=== PATIENT | female | born 1945 | race Caucasian/White ===

== ENCOUNTER 2021-01-22 15:06 | Inpatient (IN) | payer MEDICARE ==
[~2021-01-22] VITALS: Ht 170.2 cm; Wt 101.2 kg
[~2021-01-22 15:06] MED LIST: CA C1TAB92 PO; CARB1DRO7 OP; CHOL200026 PO; MAGN400T30 PO; MULT-1185 PO; OMEG1CAP18 PO; VALS160T2
[2021-01-22] MEDS ORDERED: ACET-2154 PO (16:04)
[2021-01-22] MEDS ORDERED: ASPI81TA31 PO (16:04)
[2021-01-22] MEDS ORDERED: RISP1TAB7 PO (16:04)
[2021-01-22] MEDS ORDERED: LISI40TA13 PO (16:04)
[2021-01-22] MEDS ORDERED: ATOR40TA PO (16:04)
[2021-01-22] MEDS ORDERED: DOCU-141 PO (16:04)
[2021-01-22] MEDS ORDERED: CLOP75TA15 PO (16:04)
[2021-01-22] MEDS ORDERED: MAGN400O6 PO (16:04)
[2021-01-22] MEDS ORDERED: DEXT15DR6 EACHEYE (16:04)
[2021-01-22] MEDS ORDERED: BISA10SU61 RC (16:04)
[2021-01-22] MEDS ORDERED: HYDR-3972 PO (16:04)
[2021-01-22] MEDS ORDERED: NA P133E RC (16:04)
[2021-01-22 17:12] LABS: HEMATOCRIT 35.4 % (31.2-41.9); MEAN CORPUSCULAR VOLUME 92.5 fL (75.5-95.3); PLATELET COUNT (AUTO) 203 K/uL (179-408)
[2021-01-22 17:17] LABS: CARBON DIOXIDE 24 mmol/L (21-32); CHLORIDE 107 mmol/L (98-107); CREATININE 0.8 mg/dL (0.6-1.3); GLUCOSE 94 mg/dL (74-106); POTASSIUM 4.3 mmol/L (3.5-5.1); UREA NITROGEN, BLOOD 25 mg/dL (7-18)
[2021-01-22 17:18] LABS: ETHANOL < 3 MG/DL (0-0)
[2021-01-22 17:23] LABS: ACETAMINOPHEN < 2.0 ug/mL (10-30); ALANINE AMINOTRANSFERASE 31 U/L (14-59); ALKALINE PHOSPHATASE 77 U/L (50-136); ASPARTATE AMINOTRANSFERASE 18 U/L (15-37); BILIRUBIN,DIRECT 0.1 mg/dL (0.0-0.2); BILIRUBIN,TOTAL 0.4 mg/dL (0.2-1.0)
[2021-01-22 17:30] LABS: THYROID STIMULATING HORMONE 1.373 mIU/mL (0.358-3.740)
--- NOTE | 2021-01-22 18:46 | NUR ---
Gave pt d/c instructions, pt verbalized understanding.
--- NOTE | 2021-01-22 19:55 | NUR ---
Called crisis team, Elvira, stated she will be here in about 30 minutes.
--- NOTE | 2021-01-22 20:13 | NUR ---
Pinky from crisis at bedside, assessment in progress.
[2021-01-22 20:17] LABS: *BILIRUBIN,URIN NEGATIVE (NEGATIVE); *BLOOD, URINE TRACE INTACT (NEGATIVE); *CLARITY,URINE CLEAR (CLEAR); *COLOR,URINE YELLOW (YELLOW); *KETONES,URINE NEGATIVE (NEGATIVE); *UROBILINOGEN,URINE 0.2 E.U./dl (NORMAL); LEUKOCYTE ESTERASE ,URINE NEGATIVE (NEGATIVE); NITRITE, URINE NEGATIVE (NEGATIVE); UGLUCOSE NEGATIVE (NEGATIVE)
[2021-01-22 20:23] LABS: *AMPHETAMINE, URINE NEGATIVE (NEGATIVE); *CANNABINOID, URINE NEGATIVE (NEGATIVE); *COCCAINE, URINE NEGATIVE (NEGATIVE); *OPIATE, URINE POSITIVE (NEGATIVE); *PHENCYCLIDINE SCREEN,URINE NEGATIVE (NEGATIVE)
[2021-01-22 20:35] LABS: BACTERIA,URINE NONE SEEN /HPF (NONE SEEN); RBC,URINE 0-3 /HPF (0-3); WBC,URINE 0-3 /HPF (0-3)
[2021-01-22 20:36] LABS: SQUAMOUS EPITHELIAL CELL,UR FEW /HPF (NONE SEEN)
--- NOTE | 2021-01-22 21:10 | NUR ---
Gave report to Theresa from [facility].
--- NOTE | 2021-01-22 21:29 | NUR ---
Pt. admitted to [facility] , under care of and Brian Campos Belongs List completed
[2021-01-22] MEDS ORDERED: BLOOD SUGAR DIAGNOSTIC 1 EACH STRIP VI ONE (22:00)
[2021-01-22] MEDS ORDERED: MAGNESIUM HYDROXIDE 30 ML LIQUID UDC PO PRN (22:00)
[2021-01-22] MEDS ORDERED: MAG HYDROX/AL HYDROX/SIMETH 30 ML LIQUID UDC PO PRN (22:00)
--- NOTE | 2021-01-22 23:27 | NUR ---
Received pt from ER in a safe, stable condition at 2150. Alert/oriented x 3. Pt is on 5150 hold for GD. Per hold, pt is here due to increased agitation, paranoia and refusing medications. Upon assessment, pt is cooperative/uncooperative with admission procedure, has a disorganized thought process, and able to contract for safety. Oriented pt to the unit and her room, assisted to a comfortable position. Pt's Rights Handbook and Advisement given. Safety precautions in place, q15 mins check to be done per unit protocol. Daughter Loi Mcgregor made aware of pt's admission, acknowledges information and agrees. Pt refused Accucheck upon admission despite teaching and encouragement, saying, "I'm not doing anything, I'm not taking any medication." Will endorse accordingly and continue to monitor.
[2021-01-23 01:48] VITALS: BP 169/61
--- NOTE | 2021-01-23 07:02 | NUR ---
Ozark juice, chocolate pudding and decaf tea provided to pt before going to bed last night, per pt's request. This morning, pt claims she was not given anything but tea and says'"that is not right, I was thirsty and had to have something." This nurse reminded her that she was given snacks as requested before she went to bed. Pt said she actually did not take them and that she "threw them away because they were not fresh." This copy writer then asked if she wanted something before breakfast and that it would be served around 8AM; pt refused, and said she would wait for breakfast.
[2021-01-23 07:30] VITALS: BP 124/57
--- NOTE | 2021-01-23 07:35 | NUR ---
NURSE REPORT Report given by night nurse Terence and this nurse assume care of patient. Received patient awake and alert. Ambulatory. VSS. Afeb. No c/o pain or discomfort.
--- NOTE | 2021-01-23 07:41 | NUR ---
Firearms Report: Business Support Specialist completed and submitted a [employer] firearms report for 5150 grave disability certification. A copy of report has been placed in patient chart.
[2021-01-23] MEDS ORDERED: VALSARTAN 160 MG TABLET PO SCH (09:00)
[2021-01-23] MEDS: ASPIRIN 81 MG TAB.CHEW PO SCH (09:11)
[2021-01-23] MEDS: CLOPIDOGREL 75 MG TABLET PO SCH (09:11)
[2021-01-23] MEDS: CHOLECALCIFEROL 1,000 UNIT TABLET PO SCH (09:11)
[2021-01-23] MEDS: LISINOPRIL 20 MG TABLET PO SCH (09:12)
[2021-01-23] MEDS: MAGNESIUM OXIDE 400 MG TABLET PO SCH (09:12)
--- NOTE | 2021-01-23 10:14 | NUR ---
SW Family Contact: This SW contacted patient's daughter Loi ([phone]) and was unable to leave a voicemail and SW contacted another number ([phone]) and left a voicemail.
--- NOTE | 2021-01-23 10:14 | NUR ---
SW Initial Discharge Plan: Patient currently resides at [facility] [address] [place] [address]; . This SW requested to speak to admissions and was transferred to [facility] and left a voicemail. This SW contacted patient's daughter Loi ([phone]) and was unable to leave a voicemail and SW contacted another number ([phone]) and left a voicemail. This SW will work with the MD, family, and patient to coordinate proper discharge.
--- NOTE | 2021-01-23 11:08 | NUR ---
SW Family Contact: This SW contacted patient's daughter Loi ([phone]) anad discussed treatment and discharge plan. Per daughter, she stated she is the DPOA and will fax this SW documents. Per daughter, she stated she would want a facility of doctor Shepherd'mercedez and would want pt to treat her. Daughter stated that she is planning on flying to [place] with pt in a couple of weeks. This SW will help family find a facility. Daughter requested to speak to Dr. Shepherd and this SW informed to contact DPOA. Dr. Shepherd contacted DPOA and explained treatment and discharge plan.
--- NOTE | 2021-01-23 11:14 | NUR ---
DPOA Documents: This SW received DPOA documents from patient's daughter Loi. Patient daughter Loi DPOA and son Macario. This SW placed in patient's chart.
--- NOTE | 2021-01-23 12:22 | NUR ---
WOUND CARE CONSULT: PT PRESENTS WITH SOME DRY SCRATCHES AND PINK DISCOLORATION TO BILATERAL LOWER LEGS, PRESENT ON ADMISSION. NO WOUND CARE NEEDED AT THIS TIME. WILL SEE PRN.
--- NOTE | 2021-01-23 13:00 | NUR ---
NURSE CARE Wound care nurse to see patient. Pictures taken of BLE. Ambulates with FWW. Steady gait.
--- NOTE | 2021-01-23 14:39 | NUR ---
SNF Contact: This SW received a call from [facility] admin Carlos Eduardo ([phone]) who stated if pt wants to come back she is welcomed back.
--- NOTE | 2021-01-23 14:53 | NUR ---
NURSE REPORT Report given to charge nurse Lynne to assume care of patient. SBAR given. Charge nurse aware of patient. Avelina Livingston RN
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
[2021-01-23 16:06] VITALS: BP 126/57
[2021-01-23] MEDS ORDERED: LITHIUM CARBONATE 300 MG CAPSULE PO SCH (17:00)
[2021-01-23] MEDS: LITHIUM CARBONATE 300 MG CAPSULE PO SCH (17:50)
[2021-01-23 20:18] VITALS: BP 122/60
[2021-01-23] MEDS: risperiDONE 1 MG TABLET PO SCH (21:02)
[2021-01-23] MEDS: ATORVASTATIN 40 MG TABLET PO SCH (21:02)
[2021-01-24] MEDS: LORAZEPAM 1 MG TABLET PO PRN ×2 (05:08→14:02)
--- NOTE | 2021-01-24 07:25 | NUR ---
NURSE REPORT Report obtained from liz nurse Kimber and this nurse assumed care of patient. No c/o pain or discomfort. Ambulated to recreation room.
[2021-01-24 07:30] VITALS: BP 108/68
[2021-01-24] MEDS ORDERED: VALSARTAN 160 MG TABLET PO SCH (09:00)
[2021-01-24] MEDS: LISINOPRIL 20 MG TABLET PO SCH (09:23)
[2021-01-24] MEDS: CLOPIDOGREL 75 MG TABLET PO SCH (09:24)
[2021-01-24] MEDS: ASPIRIN 81 MG TAB.CHEW PO SCH (09:24)
[2021-01-24] MEDS: CHOLECALCIFEROL 1,000 UNIT TABLET PO SCH (09:24)
[2021-01-24] MEDS: LITHIUM CARBONATE 300 MG CAPSULE PO SCH ×2 (09:27→17:14)
[2021-01-24] MEDS: MAGNESIUM OXIDE 400 MG TABLET PO SCH (09:27)
[2021-01-24] MEDS: ACETAMINOPHEN 325 MG TABLET PO PRN (14:02)
--- NOTE | 2021-01-24 14:02 | NUR ---
NURSE CARE Medicated for pain with Tylenol 650 mg and Ativan 1 mg with some relief.
[2021-01-24 16:00] VITALS: BP 135/63
--- NOTE | 2021-01-24 16:00 | NUR ---
NURSE NOTES VSS. Afeb. No c/o pain or discomfort. BP 135/63.
--- NOTE | 2021-01-24 18:50 | NUR ---
NURSE CARE Dr Campos notified of patient swollen dry flaky legs, and that patient want support hoses on and need some cream for the dryness. Ordered Aquaphor for both legs.
--- NOTE | 2021-01-24 19:40 | NUR ---
NURSE REPORT Report given to night nurse Noreen to assume care of patient. Kardex given. VSS. Afeb.Patient request to have support hoses for her swollen legs. She was instructed alos to elevate her lags. Other nurse Kimber will place orders for Vaseline and support hose. NAIN Campos had wanted Aquaphor, but not in formulary. Avelina Livingston
[2021-01-24 20:20] VITALS: BP 131/57
[2021-01-24] MEDS: risperiDONE 1 MG TABLET PO SCH (20:43)
[2021-01-24] MEDS: ATORVASTATIN 40 MG TABLET PO SCH (20:43)
[2021-01-25 07:30] VITALS: BP 103/52
[2021-01-25] MEDS: ASPIRIN 81 MG TAB.CHEW PO SCH (08:14)
[2021-01-25] MEDS: LITHIUM CARBONATE 300 MG CAPSULE PO SCH ×2 (08:14→16:50)
[2021-01-25] MEDS: CLOPIDOGREL 75 MG TABLET PO SCH (08:14)
[2021-01-25] MEDS: MAGNESIUM OXIDE 400 MG TABLET PO SCH (08:14)
[2021-01-25] MEDS: LISINOPRIL 20 MG TABLET PO SCH (08:24)
[2021-01-25] MEDS: CHOLECALCIFEROL 1,000 UNIT TABLET PO SCH (08:25)
--- NOTE | 2021-01-25 12:56 | NUR ---
Gps/Office Assistant Receptionist-Assisted patient in applying knee high denise hose. Trace edema to bilateral lower ext., discolored shins area , no open wound noted, encouraged elevating her lower ext. when in bed, stayed sitting up in the dinning room , attends her group therapy , anxious, somewhat needy.
[2021-01-25 16:00] VITALS: BP 131/66
[2021-01-25] MEDS: risperiDONE 1 MG TABLET PO SCH (20:27)
[2021-01-25] MEDS: ATORVASTATIN 40 MG TABLET PO SCH (20:27)
[2021-01-25 21:40] VITALS: BP 139/59
--- NOTE | 2021-01-26 06:27 | NUR ---
GPS: Remain calm and cooperative. compliant with meds. no behavior problem noted. slept 6 hrs through the night. continue plan of care.
--- NOTE | 2021-01-26 08:00 | NUR ---
NURSE REPORT REPORT OBTAINED FROM NIGHT NURSE NURSE ALEJANDRA AT 0715 AND THIS NURSE ASSUMED CARE OF PATIENT. RECEIVED PATIENT AWAKE IN THE AM, WITHOUT ANY SXS OF PAIN OR DISCOMFORT. VSS. AFEB.
[2021-01-26 08:10] VITALS: BP 137/54
[2021-01-26] MEDS: CHOLECALCIFEROL 1,000 UNIT TABLET PO SCH (08:44)
[2021-01-26] MEDS: CLOPIDOGREL 75 MG TABLET PO SCH (08:44)
[2021-01-26] MEDS: LITHIUM CARBONATE 300 MG CAPSULE PO SCH ×2 (08:44→16:43)
[2021-01-26] MEDS: ASPIRIN 81 MG TAB.CHEW PO SCH (08:44)
[2021-01-26] MEDS: LISINOPRIL 20 MG TABLET PO SCH (08:45)
[2021-01-26] MEDS: MAGNESIUM OXIDE 400 MG TABLET PO SCH (08:47)
--- NOTE | 2021-01-26 12:00 | NUR ---
NURSE NOTES VSS. afeb. No c/o pain or discomfort. Has Jose support hoses on. Lunch taken 100%.
[2021-01-26 16:34] VITALS: BP 137/58
--- NOTE | 2021-01-26 19:11 | NUR ---
NURSE REPORT Report given to night nurse Mariann and Kardex given. VSS. Afeb. No pain or discomfort.
[2021-01-26] MEDS: ACETAMINOPHEN 325 MG TABLET PO PRN (19:52)
[2021-01-26 20:00] VITALS: BP 111/58
[2021-01-26] MEDS: risperiDONE 1 MG TABLET PO SCH (21:10)
[2021-01-26] MEDS: ATORVASTATIN 40 MG TABLET PO SCH (21:13)
[2021-01-26] MEDS: ZOLPIDEM 5 MG TABLET PO PRN (22:34)
[2021-01-27 07:57] VITALS: BP 107/61
[2021-01-27] MEDS: CHOLECALCIFEROL 1,000 UNIT TABLET PO SCH (08:48)
[2021-01-27] MEDS: MAGNESIUM OXIDE 400 MG TABLET PO SCH (08:48)
[2021-01-27] MEDS: LITHIUM CARBONATE 300 MG CAPSULE PO SCH ×2 (08:48→17:13)
[2021-01-27] MEDS: ASPIRIN 81 MG TAB.CHEW PO SCH (08:49)
[2021-01-27] MEDS: CLOPIDOGREL 75 MG TABLET PO SCH (08:49)
[2021-01-27] MEDS: LISINOPRIL 20 MG TABLET PO SCH (08:50)
[2021-01-27 17:01] VITALS: BP 113/61
[2021-01-27 20:17] VITALS: BP 111/51
[2021-01-27] MEDS: risperiDONE 2 MG TABLET PO SCH (21:58)
[2021-01-27] MEDS: ATORVASTATIN 40 MG TABLET PO SCH (21:58)
[2021-01-28 07:30] VITALS: BP 113/65
[2021-01-28] MEDS: ASPIRIN 81 MG TAB.CHEW PO SCH (08:24)
[2021-01-28] MEDS: CLOPIDOGREL 75 MG TABLET PO SCH (08:24)
[2021-01-28] MEDS: CHOLECALCIFEROL 1,000 UNIT TABLET PO SCH (08:24)
[2021-01-28] MEDS: MAGNESIUM OXIDE 400 MG TABLET PO SCH (08:24)
[2021-01-28] MEDS: LITHIUM CARBONATE 300 MG CAPSULE PO SCH ×2 (08:24→17:10)
[2021-01-28] MEDS: LISINOPRIL 20 MG TABLET PO SCH (08:24)
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
[2021-01-28 15:57] VITALS: BP 121/46
--- NOTE | 2021-01-28 18:33 | NUR ---
Received patient AOx4 compliant with all AM medication,stayed in the dinning room during breakfast interactive with other peers making simple needs known.anxious at time ,will continue monitoring.
[2021-01-28 20:45] VITALS: BP 152/51
[2021-01-28] MEDS: ATORVASTATIN 40 MG TABLET PO SCH (22:03)
[2021-01-28] MEDS: risperiDONE 2 MG TABLET PO SCH (22:04)
[2021-01-29 07:30] VITALS: BP 113/71
[2021-01-29] MEDS: MAGNESIUM OXIDE 400 MG TABLET PO SCH (09:11)
[2021-01-29] MEDS: CHOLECALCIFEROL 1,000 UNIT TABLET PO SCH (09:11)
[2021-01-29] MEDS: ASPIRIN 81 MG TAB.CHEW PO SCH (09:11)
[2021-01-29] MEDS: LITHIUM CARBONATE 300 MG CAPSULE PO SCH ×2 (09:11→16:13)
[2021-01-29] MEDS: CLOPIDOGREL 75 MG TABLET PO SCH (09:11)
[2021-01-29] MEDS: LISINOPRIL 20 MG TABLET PO SCH (09:12)
--- NOTE | 2021-01-29 10:15 | NUR ---
Court Hearing: Patient's court hearing for 1060 was today and it was upheld for GD.
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
--- NOTE | 2021-01-29 12:01 | NUR ---
SNF Referral: This SW faxed clinicals to Rosa kim from [facility] [phone] for placement.
--- NOTE | 2021-01-29 13:13 | NUR ---
SW Family Contact: This SW spoke with patient's SETH Loi ([phone]) and stated that pt is accepted at [facility] and she was agreeable with this facility.
[2021-01-29 15:51] VITALS: BP 123/60
[2021-01-29 20:13] VITALS: BP_SYST 130; BP_DIAS 50; BP_DIAS 68
[2021-01-29] MEDS: ATORVASTATIN 40 MG TABLET PO SCH (21:26)
[2021-01-29] MEDS: ZOLPIDEM 5 MG TABLET PO PRN (21:26)
[2021-01-29] MEDS: risperiDONE 2 MG TABLET PO SCH (21:27)
[2021-01-30 07:30] VITALS: BP 133/62
[2021-01-30] MEDS: CHOLECALCIFEROL 1,000 UNIT TABLET PO SCH (09:10)
[2021-01-30] MEDS: ASPIRIN 81 MG TAB.CHEW PO SCH (09:10)
[2021-01-30] MEDS: CLOPIDOGREL 75 MG TABLET PO SCH (09:10)
[2021-01-30] MEDS: LITHIUM CARBONATE 300 MG CAPSULE PO SCH ×2 (09:10→16:41)
[2021-01-30] MEDS: LISINOPRIL 20 MG TABLET PO SCH (09:11)
[2021-01-30] MEDS: MAGNESIUM OXIDE 400 MG TABLET PO SCH (09:14)
--- NOTE | 2021-01-30 12:05 | NUR ---
SW Family Contact: This SW contacted patient's SETH Monsivais ([phone]) and left a voicemail of patient's discharge for tomorrow. This SW left a detailed voicemail of patient's improvement at the unit and information about invega injection.
[2021-01-30 16:00] VITALS: BP 121/58
--- NOTE | 2021-01-30 19:15 | NUR ---
NURSE REPORT Report obtained from night nurse Arlene and this nurse assumed care of patient. Kardex and montoya given to nurse. All meds taken. No c/o pain or discomfort. COVID swab obtained for discharge tomorrow.
[2021-01-30 20:24] VITALS: BP 139/69
[2021-01-30] MEDS: risperiDONE 2 MG TABLET PO SCH (21:04)
[2021-01-30] MEDS: ATORVASTATIN 40 MG TABLET PO SCH (21:04)
[2021-01-31 07:30] VITALS: BP 128/58
--- NOTE | 2021-01-31 08:09 | NUR ---
SW Discharge Note: Patient will be discharged to [facility] [address] [place] [address] ([phone]) via ambulance at 1PM. Spoke with Mary, Admin Coordinator at the facility who states they are ready to accept the patient today. Patient is aware and agreeable with discharge plans. Patients DPOA daughter Loi ([phone]) is aware and agreeable. Patient is alert and oriented x3, is unable to plan for self-care at this time, however, is willing to accept care at [facility]. Patient denies any suicidal or homicidal ideation. Patient will follow-up at the facility with Dr. Shepherd (psychiatrist) and Dr. Agrawal ([employer]). Patient presents with euthymic mood and congruent affect.
[2021-01-31 09:25] VITALS: BP 128/58
[2021-01-31] MEDS: LISINOPRIL 20 MG TABLET PO SCH (09:25)
[2021-01-31] MEDS: ASPIRIN 81 MG TAB.CHEW PO SCH (09:25)
[2021-01-31] MEDS: LITHIUM CARBONATE 300 MG CAPSULE PO SCH (09:25)
[2021-01-31] MEDS: CLOPIDOGREL 75 MG TABLET PO SCH (09:26)
[2021-01-31] MEDS: MAGNESIUM OXIDE 400 MG TABLET PO SCH (09:26)
[2021-01-31] MEDS: CHOLECALCIFEROL 1,000 UNIT TABLET PO SCH (09:26)
--- NOTE | 2021-01-31 11:37 | NUR ---
Gps/Senior Controls Engineer- Patient aware of her discharge plan this pm. to [facility] All belongings and valuable will be given back to patient upon discharge . Daughter Loi was aware of the dc. plan as noted from SW.notes.
--- NOTE | 2021-01-31 13:20 | NUR ---
Gps/People Greeter-All belongings/valuables given back to patient. Discharged to [facility] via ambulance. Report was given. Discharged in good spirit, with no new complaints noted.
== END 2021-01-31 13:15 | DRG 885 ==
LOC: ER 15:06 → GPS 21:13
PROVIDERS: ADMIT Psychiatry & Neurology Psychiatry; ATTEND Nurse Practitioner Acute Care
DX: F31.2 Bipolar disorder, current episode manic severe with psychotic features (principal); E51.2 Wernicke's encephalopathy; E78.5 Hyperlipidemia, unspecified; G31.84 Mild cognitive impairment of uncertain or unknown etiology; F41.9 Anxiety disorder, unspecified; Z20.822 Contact with and (suspected) exposure to COVID-19; G89.29 Other chronic pain; Z86.73 Personal history of transient ischemic attack (TIA), and cerebral infarction without residual deficits; Z79.899 Other long term (current) drug therapy; I10 Essential (primary) hypertension
CPT/HCPCS: 36415; 70030-TC; 84443; 85025; 93005; A4663; G0480

== ENCOUNTER 2024-06-15 20:14 | Inpatient (IN) | payer MEDICARE ==
[~2024-06-15] VITALS: Ht 172.7 cm; Wt 112.0 kg
[2024-06-15 20:00] VITALS: BP 161/71; TEMP 98.2; O2SAT 96
[~2024-06-15 20:14] MED LIST changes: +ACET-2154 PO; +ASPI81TA31 PO; +ATOR40TA PO; +BISA10SU61 RC; +CLOP75TA15 PO; +DEXT15DR6 EACHEYE; +DOCU-141 PO; +HYDR-3972 PO; +LISI40TA13 PO; +MAGN400O6 PO; +NA P133E RC; -VALS160T2
[2024-06-15] MEDS ORDERED: APIX5TAB PO (20:39)
[2024-06-15] MEDS ORDERED: LOSA50TA39 PO (20:39)
[2024-06-15] MEDS ORDERED: SPIR25TA PO (20:39)
[2024-06-15] MEDS ORDERED: METO25TA6 PO (20:39)
[2024-06-15] MEDS ORDERED: RISP0.5T65 PO (20:48)
[2024-06-15] MEDS ORDERED: ASPI-612 PO (21:02)
[2024-06-15] MEDS ORDERED: REMEDY ESSENTIAL ZINC PASTE 113 GM TOP PRN (22:00)
[2024-06-16 06:16] VITALS: BP 137/71; TEMP 98; O2SAT 98
[2024-06-16] MEDS ORDERED: ATOR10TA PO (10:35)
[2024-06-16] MEDS: LOSARTAN POTASSIUM 50 MG TABLET PO SCH (11:22)
[2024-06-16] MEDS: METOPROLOL TARTRATE 25 MG TABLET PO SCH (11:22)
[2024-06-16] MEDS: APIXABAN 5 MG TABLET PO SCH (11:23)
[2024-06-16 15:37] VITALS: BP 107/58; TEMP 97.8; O2SAT 96
[2024-06-16] MEDS: ATORVASTATIN 10 MG TABLET PO SCH (17:03)
[2024-06-16] MEDS ORDERED: MULT-1119 PO (17:21)
[2024-06-16] MEDS ORDERED: SPIR25TA6 PO (17:21)
[2024-06-16] MEDS ORDERED: ATORVASTATIN 40 MG TABLET PO SCH (18:00)
[2024-06-16] MEDS: ASPIRIN 325 MG TABLET PO SCH (18:26)
[2024-06-16 20:11] VITALS: BP 123/54; TEMP 97.8; O2SAT 96
[2024-06-17 07:03] VITALS: BP 139/63; TEMP 98.3; O2SAT 95
[2024-06-17] MEDS: SPIRONOLACTONE 25 MG TABLET PO SCH (08:09)
[2024-06-17 16:00] VITALS: BP 160/58; TEMP 97.9; O2SAT 95
[2024-06-17] MEDS ORDERED: ATORVASTATIN 10 MG TABLET PO SCH (18:00)
[2024-06-17 20:49] VITALS: BP 112/57; TEMP 98.6; O2SAT 95
[2024-06-17] MEDS: ATORVASTATIN 40 MG TABLET PO SCH (21:03)
[2024-06-18 06:30] VITALS: BP 120/62; TEMP 98.3; O2SAT 94
[2024-06-18] MEDS: APIXABAN 5 MG TABLET PO SCH (10:27)
[2024-06-18 15:30] VITALS: BP 119/53; TEMP 97.6; O2SAT 94
[2024-06-18 20:00] VITALS: BP 135/49; TEMP 98.4; O2SAT 96
[2024-06-19 16:00] VITALS: BP 115/57; TEMP 98; O2SAT 98
[2024-06-19 20:00] VITALS: BP 143/56; TEMP 98.2; O2SAT 98
[2024-06-20 16:22] VITALS: BP 115/48; TEMP 97.8; O2SAT 98
[2024-06-20 20:02] VITALS: BP 114/47; TEMP 98; O2SAT 97
[2024-06-21 09:19] VITALS: BP 129/67; TEMP 98.6; O2SAT 98
[2024-06-21 16:14] VITALS: BP 108/48; TEMP 97.6; O2SAT 98
[2024-06-21 19:40] VITALS: BP 108/44; TEMP 98; O2SAT 95
[2024-06-22 06:14] VITALS: BP 112/56; TEMP 98.1; O2SAT 97
[2024-06-22 07:38] VITALS: BP 108/55; TEMP 97.9; O2SAT 96
[2024-06-22 16:00] VITALS: BP 109/43; TEMP 97.9; O2SAT 99
[2024-06-22 20:00] VITALS: BP 125/49; TEMP 97.8; O2SAT 98
[2024-06-22 22:07] VITALS: BP 125/56; TEMP 97.6; O2SAT 97
[2024-06-23 06:00] VITALS: BP 133/77; TEMP 97.4; O2SAT 98
[2024-06-23 16:30] VITALS: BP 118/48; TEMP 97.8; O2SAT 97
[2024-06-23 23:11] VITALS: BP 112/74; TEMP 98.1; O2SAT 96
[2024-06-24 06:14] VITALS: BP 114/63; TEMP 97.3; O2SAT 94
[2024-06-24 15:33] VITALS: BP 96/46; TEMP 97.8; O2SAT 94
[2024-06-24 19:50] VITALS: BP 107/41; TEMP 97.5; O2SAT 96
[2024-06-25 06:30] VITALS: BP 105/51; TEMP 97.8; O2SAT 98
[2024-06-25 16:13] VITALS: BP 116/53; TEMP 97.8; O2SAT 98
[2024-06-25 20:13] VITALS: BP 126/51; TEMP 97.9; O2SAT 96
[2024-06-26 07:05] VITALS: BP 104/52; TEMP 97.5; O2SAT 97
[2024-06-26 16:12] VITALS: BP 111/54; TEMP 97.6; O2SAT 98
[2024-06-26 20:00] VITALS: BP 112/54; TEMP 98.4; O2SAT 98
[2024-06-27 06:00] VITALS: BP 133/55; TEMP 97.8; O2SAT 100
[2024-06-27 10:10] LABS: FOLATE (FOLIC ACID), SERUM >20.0 ng/mL (>3.0)
[2024-06-27 15:11] LABS: METHYLMALONIC ACID 116 nmol/L (0-378)
[2024-06-27 15:44] VITALS: BP 103/49; TEMP 97.7; O2SAT 97
[2024-06-27 20:00] VITALS: BP 122/53; TEMP 98.2; O2SAT 98
[2024-06-28 06:00] VITALS: BP 122/59; TEMP 98; O2SAT 98
[2024-06-28 19:26] VITALS: BP 106/57; TEMP 98.1; O2SAT 97
== END 2024-06-28 18:00 | disposition home health service (06) | DRG 57 ==
PROVIDERS: ADMIT Physical Medicine & Rehabilitation Pain Medicine; ATTEND Physical Medicine & Rehabilitation Pain Medicine
DX: I69.353 Hemiplegia and hemiparesis following cerebral infarction affecting right non-dominant side (principal); E51.2 Wernicke's encephalopathy; I69.320 Aphasia following cerebral infarction; F31.9 Bipolar disorder, unspecified; G89.29 Other chronic pain; I10 Essential (primary) hypertension; I48.0 Paroxysmal atrial fibrillation; Z79.01 Long term (current) use of anticoagulants; M54.50 Low back pain, unspecified; Z88.8 Allergy status to other drugs, medicaments and biological substances
CPT/HCPCS: 36415; 82746; 83921; 97535-GO-CO; A4663